=== PATIENT | female | born 1945 | race Caucasian/White ===

== ENCOUNTER → 2016-07-10 | Outpatient (CLI) | payer MEDICARE, OTHER | END | disposition home or self-care (01) | LOC: GMAL 11:54 | PROVIDERS: ATTEND Family Medicine | DX: D51.3 Other dietary vitamin B12 deficiency anemia (principal); R53.83 Other fatigue; E55.9 Vitamin D deficiency, unspecified; N39.498 Other specified urinary incontinence ==

== ENCOUNTER → 2017-10-01 | Outpatient (CLI) | payer OTHER | LOC: GMAL 12:08 | PROVIDERS: ATTEND Family Medicine | DX: D51.3 Other dietary vitamin B12 deficiency anemia (principal); R53.83 Other fatigue; E55.9 Vitamin D deficiency, unspecified ==

== ENCOUNTER → 2017-10-08 | Outpatient (CLI) | payer OTHER | LOC: GMAL 18:21 | PROVIDERS: ATTEND Family Medicine | DX: D50.8 Other iron deficiency anemias (principal) ==

== ENCOUNTER → 2018-09-16 | Outpatient (CLI) | payer OTHER ==
--- NOTE | 2018-09-16 13:17 | RAD ---
EXAM DESCRIPTION: Pelvis CLINICAL HISTORY: 73 years Female, M25.551, M25.552 COMPARISON: None. FINDINGS: Transitional lower lumbar vertebrae with pseudoarticulation of the right transverse process with the upper sacrum. Sacrum appears intact. Normal SI joints. Advanced degenerative changes at the pubic symphysis. No fracture or dislocation of the proximal femurs. Bones of the pelvic ring appear intact. Minimal narrowing of the hip joints. IMPRESSION: Negative for fracture. Electronically signed by: Kishore Teixeira MD 09/16/2018 1:14 PM CDT
== END ==
LOC: RAD 07:59
PROVIDERS: ATTEND Orthopaedic Surgery
DX: M25.551 Pain in right hip (principal); M25.552 Pain in left hip

== ENCOUNTER → 2018-09-17 | Outpatient (CLI) | payer OTHER | LOC: GMAL 10:27 | PROVIDERS: ATTEND Family Medicine | DX: D50.8 Other iron deficiency anemias (principal) ==

== ENCOUNTER → 2018-10-29 | Outpatient (CLI) | payer OTHER | LOC: RAD 10:32 | PROVIDERS: ATTEND Family Medicine | DX: M25.551 Pain in right hip (principal); M25.552 Pain in left hip; D50.8 Other iron deficiency anemias ==

== ENCOUNTER → 2018-11-06 | Outpatient (CLI) | payer OTHER ==
--- NOTE | 2018-11-06 14:58 | MRI ---
EXAM DESCRIPTION: Lumbar Spine w/o Contrast : Magnetic Resonance Imaging. CLINICAL HISTORY: RADICULOPATHY COMPARISON: LUMBAR TECHNIQUE: Multiplanar, multiple standard sequences, non contrast MRI, lumbar spine. FINDINGS: L5-S1: Disc space visualized on axial T2 series #501, image 3. The L5 vertebra is transitional partially sacralized. In particular, the right transverse process articulates with the right upper sacral ala and the right iliac bone partial articulation of the left transverse process with the left iliac bone. The foramina and sacral canal are also lumbarized in caliber. Disc desiccation with no disc bulge. Mild bilateral facet arthrosis. L4-L5: Disc desiccation and grade 1 anterolisthesis 3 mm. Minimal deformity of the left L4 pars interarticularis. No disc bulge. Marked bilateral facet hypertrophic arthrosis and thickening of the posterior flavum ligaments encroaching on the posterior thecal sac with AP canal diameter 5 mm. Bilateral mild foraminal narrowing. L3-L4: Disc desiccation posterior midline bulge with hyperintense T2 signal annular fissure in the midline abutting the thecal sac. Hypertrophic facet arthrosis and bilateral ligament thickening impressing on the thecal sac with AP canal diameter 8 mm. Mild right foraminal narrowing and moderate left foraminal narrowing. L2-L3: Disc desiccation with disc space maintained. Minimal anterior bulging and ridging. No posterior bulge. Bilateral flavum ligament hypertrophy and thickened ligaments with AP canal diameter 11 mm. Mild narrowing of the left foramen and moderate narrowing of the right foramen. L1-L2: Disc desiccation with minimal disc space loss. Anterior bulging and endplate ridging. Tiny posterior bulge. Mild hypertrophic facet arthrosis and ligament thickening with mild canal narrowing. Bilateral foramina are patent. T12-L1: Disc desiccation and moderate disc space loss. Endplate irregularities with Schmorl's nodes inferior T12. Anterior bulging and endplate ridging. Trace retrolisthesis 2 mm. Tiny posterior disc bulge. Conus terminates at this level.. Canal is patent. Mild bilateral foraminal narrowing. Normal signal in the distal conus and cord. No significant scoliosis. Paravertebral soft tissues show minimal paraspinal muscle atrophy. No mass.. Normal marrow signal in the remaining vertebral bodies and the posterior elements. Vertebral bodies are not compressed at any level. IMPRESSION: 1. L5 vertebra is transitional and partially sacralized. Sacralization of the bilateral L5-S1 foramina and the spinal canal. Partial articulation of the transverse processes with the upper sacral ala and bilateral iliac bone, more right than left. Transitional vertebra and similar spinal anomalies can be associated with abnormal spinal biomechanics and be a source of low back pain. There are also multiple levels of posterior facet hypertrophic arthrosis and thickening of the flavum ligaments. 2. L4-L5 multifactorial severe central canal stenosis. Bilateral mild foraminal narrowing. Grade 1 anterolisthesis with no significant disc bulge. Possible spondylolysis left L4 pars interarticularis. 3. L3-L4 disc desiccation and posterior bulge with annular fissure. Small posterior midline bulge of the disc. Mild to moderate central canal stenosis with hypertrophy of the posterior elements. 4. Moderate spondylosis at T12-L1 level. Trace retrolisthesis. No foraminal or canal stenosis. Electronically signed by: Andrew Blake MD 11/06/2018 2:55 PM CDT
== END ==
LOC: MRI 07:47
PROVIDERS: ATTEND Psychiatry & Neurology Neurology
DX: M51.16 Intervertebral disc disorders with radiculopathy, lumbar region (principal); M47.25 Other spondylosis with radiculopathy, thoracolumbar region; M48.062 Spinal stenosis, lumbar region with neurogenic claudication

== ENCOUNTER 2019-07-19 13:05 | Emergency (ER) | payer OTHER ==
[2019-07-19] MEDS ORDERED: SODIUM CHLORIDE 0.9% (FLUSH) 10 ML SYG IV PRN (13:23)
[2019-07-19] MEDS ORDERED: NITROGLYCERIN 0.4 MG 25 EA TAB SL ONE (13:23)
--- NOTE | 2019-07-19 13:24 | ED.PDOC ---
History of Present Illness - General Chief Complaint: Cardiovascular Problem Stated Complaint: syncopal episode Time Seen by Provider: 07/19/19 13:23 Source: patient - History of Present Illness Initial Comments: 74 yo female who is sent from clinic for cc of near syncope. Reports took her BP meds at 10:30 am. At clinic at 11 am to be seen for not feeling well for past few days and for ongoing FITZGERALD. Suddenly while sitting in waiting room she felt very dizzy/lightheaded and turned pale and clammy. Reported nausea but no emesis. Also reported new onset of intermittent fluttering sensation in her c hest which would last for 1-2 minutes and occur sporadically. Her BP was so low it was not registering there. Pt sent to ED for further eval. After some rest she reports now feeling much better. BP 90s/60s on arrival. Reports off and on posterior FITZGERALD for 1-2 weeks now. Also reports frequent chronic dry cough. Denies any chest pain, dyspnea, abd pain, leg swelling. BP meds: Benzapril 20 mg daily, Coreg 6.25 mg BID, HCTZ 25 mg daily, amlodipine 10 mg daily. Allergies/Adverse Reactions: Allergies Cephalexin [From Keflex] Allergy (Severe, Verified 07/19/19 13:23) Hives Home Medications: Ambulatory Orders DiphenhydrAMINE HCL [Benadryl] 50 mg PO 11/21/13 Nitrofurantoin Monohydrate Mac [Macrobid] 100 mg PO BID #14 capsule 07/19/19 Review of Systems - Review of Systems Review of Systems: 07/19/19 14:11 as per HPI All other Systems: Reviewed and Negative Past Medical History (General) - Patient Medical History Hx Seizures: No Hx Stroke: No Hx Dementia: No Hx Asthma: No Hx of COPD: No Hx Cardiac Disorders: No Hx Congestive Heart Failure: No Hx Pacemaker: No Hx Hypertension: Yes Hx Thyroid Disease: No Hx Diabetes: Yes Hx Gastroesophageal Reflux: No Hx Renal Disease: No Hx of HIV: No Hx MRSA: No Surgical History: appendectomy, cholecystectomy, other - Vaccination History Hx Tetanus, Diphtheria Vaccination: Yes - within last 5 years Hx Influenza Vaccination: Yes - unknown Hx Pneumococcal Vaccination: Yes - Social History Hx Tobacco Use: No Hx Chewing Tobacco Use: No Hx Alcohol Use: No Hx Substance Use: No Hx Substance Use Treatment: No Hx Depression: No Hx Physical Abuse: No Hx Emotional Abuse: No Hx Suspected Abuse: No - Female History Patient : No Family Medical History - Family History Mother Living Status: Hx Family Hypertension: Yes Hx Family Stroke: Yes Hx Family Diabetes: Yes Physical Exam - Physical Exam General Appearance: Alert, No apparent distress Eye Exam: bilateral normal Ears, Nose, Throat: hearing grossly normal, normal ENT inspection, normal pharynx Neck: non-tender, full range of motion, supple, normal inspection Respiratory: chest non-tender, lungs clear, normal breath sounds, no respiratory distress, no accessory muscle use Cardiovascular/Chest: normal peripheral pulses, regular rate, rhythm, no edema, no gallop, no JVD, no murmur Peripheral Pulses: radial,right: 2+, radial,left: 2+ Gastrointestinal/Abdominal: non tender, soft, no organomegaly Back Exam: normal inspection, no CVA tenderness, no vertebral tenderness Extremity: normal range of motion, non-tender, normal inspection, no pedal edema, no calf tenderness 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 Consider also ACS, CHF, arrhythmia, electolyte derangement, infection, dehydration, other -stat cardiac work-up, labs -1 L NS bolus 07/19/19 16:16 -Pt remains stable >2 hours now following rest & IV fluids in ED. UA reveals possible UTI. Cardiac work-up is unremarkable. CXR clear per my read. -Suspect acute sx's likely medication-induced hypotension. Spoke with Dr. Wahl who advised having her stop the Benzapril and have her f/u with him next week in clinic for repeat evaluation. -as her UA is equivocal for possible UTI, will place on Macrobid BID x7 days -dc home in good condition, return warnings discussed Peter Napier MD Billing #[id number] 07/19/19 13:23 IV Care:Saline Lock per Protoc QSHIFT Telemetry .ONCE Sodium Chloride 0.9% (Flush) [Saline Flush Syringe] 10 ml IV PRN PRN EKG Stat Pulse Ox Stat 03/09/20 14:06 INFLUENZA A & B BY PCR Stat 07/19/19 15:15 EKG STAT Laboratory Results - last 24 hr 07/19/19 07/19/19 07/19/19 13:30 13:30 15:00 WBC 10.7 RBC 4.70 Hgb 14.3 Hct 42.8 MCV 91.0 MCH 30.4 MCHC 33.4 RDW 14.1 Plt Count 211 MPV 9.4 Absolute Neuts (auto) 9.20 H Absolute Lymphs (auto) 0.70 L Absolute Monos (auto) 0.60 Absolute Eos (auto) 0.10 Absolute Basos (auto) 0.10 Neutrophils % 86.2 H Lymphocytes % 6.5 L Monocytes % 5.9 Eosinophils % 0.8 L Basophils % 0.6 PT 9.8 INR < 1.00 PTT (SP) 21.2 L D-Dimer, Quantitative < 131 L Sodium 136 Potassium 4.2 Chloride 102 Carbon Dioxide 21 Anion Gap 17.2 BUN 29 H Creatinine 1.28 BUN/Creatinine Ratio 22.7 H Random Glucose 157 H Serum Osmolality 281.0 Calcium 9.3 Magnesium 1.9 Total Bilirubin 0.6 Direct Bilirubin 0.1 Indirect Bilirubin 0.5 AST 23 ALT 21 Alkaline Phosphatase 61 Creatine Kinase 36 CK-MB (CK-2) 1.1 CK-MB (CK-2) % Not Reportable Troponin I < 0.02 B-Natriuretic Peptide 11.9 Serum Total Protein 6.8 Albumin 4.1 Urine Color Yellow Urine Appearance Cloudy Urine pH 5.0 Ur Specific [place] 1.020 Urine Protein 100 H Urine Glucose (UA) Negative Urine Ketones Trace Urine Blood Trace-lysed H Urine Nitrite Negative Urine Bilirubin Small H Urine Urobilinogen 0.2 Ur Leukocyte Esterase Trace H Urine RBC 3-5 H Urine WBC 5-10 H Ur Epithelial Cells 1-3 Amorphous Sediment 3+ Urine Bacteria 1+ Hyaline Casts 0-1 Urine Mucus Large 07/19/19 15:21 WBC RBC Hgb Hct MCV MCH MCHC RDW Plt Count MPV Absolute Neuts (auto) Absolute Lymphs (auto) Absolute Monos (auto) Absolute Eos (auto) Absolute Basos (auto) Neutrophils % Lymphocytes % Monocytes % Eosinophils % Basophils % PT INR PTT (SP) D-Dimer, Quantitative Sodium Potassium Chloride Carbon Dioxide Anion Gap BUN Creatinine BUN/Creatinine Ratio Random Glucose Serum Osmolality Calcium Magnesium Total Bilirubin Direct Bilirubin Indirect Bilirubin AST ALT Alkaline Phosphatase Creatine Kinase CK-MB (CK-2) CK-MB (CK-2) % Troponin I < 0.02 B-Natriuretic Peptide Serum Total Protein Albumin Urine Color Urine Appearance Urine pH Ur Specific [place] Urine Protein Urine Glucose (UA) Urine Ketones Urine Blood Urine Nitrite Urine Bilirubin Urine Urobilinogen Ur Leukocyte Esterase Urine RBC Urine WBC Ur Epithelial Cells Amorphous Sediment Urine Bacteria Hyaline Casts Urine Mucus 07/19/19 16:47 - EKG/XRAY/CT EKG: Sinus - NSR, HR 80, no ST elev's or q waves, axis & intervals normal, no p rior EKG for comparison - Additional EKG/XRAY/Consults EKG #2: Unchanged from - initial Departure - Departure Clinical Impression: Low blood pressure, UTI (urinary tract infection) Time of Disposition: 16:14 Disposition: Discharge to Home or Self Care Condition: Good Departure Forms: ED Discharge - Pt. Copy, Patient Portal Self Enrollment Instructions: DI for Chest Pain Diet: resume usual diet Referrals: Yariel Wahl III, MD [Primary Care Provider] - 1-2 Weeks Prescriptions: Nitrofurantoin Monohydrate Mac [Macrobid] 100 mg PO BID #14 capsule Home Medications: Ambulatory Orders DiphenhydrAMINE HCL [Benadryl] 50 mg PO 11/21/13 Nitrofurantoin Monohydrate Mac [Macrobid] 100 mg PO BID #14 capsule 07/19/19 Additional Instructions: Follow up with Dr. Wahl in 1 week in clinic. Quit taking the Benzapril for now until further direction from your PCP. Return if any concerning symptoms develop such as chest pain, shortness of breath, fevers, etc...
--- NOTE | 2019-07-19 14:05 | RAD ---
EXAM DESCRIPTION: Chest,1 View CLINICAL HISTORY: chest pain COMPARISON: January 06, 2008 IMPRESSION: Single AP portable upright view of the chest shows cardiac silhouette and pulmonary vasculature to be within normal limits. Lungs are normally aerated and clear. No obvious pleural effusion or pneumothorax is seen. Moderate retrocardiac hiatal hernia is seen with air-fluid level now identified. Postsurgical changes to the right shoulder are seen. Electronically signed by: Gregorio Mello MD 07/19/2019 2:04 PM CDT
[2019-07-19] MEDS ORDERED: SODIUM CHLORIDE 0.9% 1000ML 1,000 ML IVS ONE (14:07)
[2019-07-19 15:42] VITALS: TEMP 97.9
[2019-07-19 16:07] VITALS: BP 118/73; O2SAT 94
[2019-07-19] MEDS ORDERED: NITROFURANTOIN MONOHYDRATE MAC 100 MG CAP PO ONE (16:10)
== END 2019-07-19 16:50 | disposition home or self-care (01) ==
LOC: ER 13:05
DX: I95.9 Hypotension, unspecified (principal); N39.0 Urinary tract infection, site not specified; R55 Syncope and collapse; R05 Cough; E11.9 Type 2 diabetes mellitus without complications; I10 Essential (primary) hypertension; Z88.1 Allergy status to other antibiotic agents; Z79.899 Other long term (current) drug therapy
CPT/HCPCS: 36415; 71045; 80048; 80076; 81001; 82550; 82553; 83880; 84484; 85025; 85379; 85610; 85730; 87086; 93005; 94760; J7030

== ENCOUNTER → 2019-09-20 | Outpatient (CLI) | payer OTHER ==
--- NOTE | 2019-09-21 09:01 | MRI ---
EXAM DESCRIPTION: Brain w/wo Contrast: Magnetic Resonance Imaging. CLINICAL HISTORY: 74 years Female HEADACHE COMPARISON: MRI scan of the brain without and with gadolinium IV contrast September 2010. TECHNIQUE: Multiplanar, high-field MRI, multiple conventional sequences, without and with gadolinium IV contrast. No adverse reactions. Multiple axial diffusion sequences. FINDINGS: Enhancing lesion in the posterior falx less than 1 mm long axis and extending to the left with mass effect on the left parasagittal occipital lobe. Axial reformats postcontrast image 26 and axial T1 postcontrast image 18. Sagittal 3-D sequence with gadolinium, image 74. Central lack of enhancement on T2 axial image 18 and gradient axial image 18, is signal void indicating calcification. This lesion is most likely a meningioma and demonstrates minimal enlargement compared to the prior study. No cerebral edema in the occipital lobe or abnormal enhancement. No hemorrhage. Minimal periventricular white matter and subcortical white matter hyperintense FLAIR and T2-weighted signal. Stable since the prior study. No abnormal enhancement, no cerebral edema, no mass effect and no hemorrhage.. Normal signal in the bilateral basal ganglia. Normal contrast enhancement. Normal signal in the brainstem and cerebellar hemispheres. Normal contrast enhancement. Concordance of the diffusion and non-diffusion sequences with no evidence of acute or subacute infarction. Cortical sulci, ventricles, and other CSF spaces, and the subdural spaces are normally configured for patients age. No effacement or displacement. No midline shift. No extra-axial hemorrhage. Normal contrast enhancement. Normal flow signal void in the major vessels of the [place] [address], and the venous sinuses. IACs are symmetric bilaterally. Possible left posterior communicating artery. Right vertebral artery dominance. Stable since the prior study. Normal signal in the bilateral mastoid air cells. No mass effect in the bilateral Cerebellopontine angles. Normal contrast enhancement. Pituitary gland occupies all of the sella. Normal contrast enhancement. Base of the cerebellar tonsils is at the level of the foramen magnum. Minimal mucosal thickening in the paranasal sinuses. The bony calvarium is intact. IMPRESSION: 1. Extra-axial mass, with calcification and enhancement, posterior falx, mass effect on the parasagittal left occipital lobe, without definite invasion. No cerebral edema, hemorrhage, or enhancement in the lobe. Slight enlargement since the prior study in 2010. Most likely a meningioma. Not likely to be related to clinical history. 2. Periventricular white matter and subcortical white matter signal changes most likely related to aging or possibly cerebral microvascular disease. No significant progression since the prior study. Electronically signed by: Andrew Blake MD 09/21/2019 8:59 AM CDT
== END ==
LOC: MRI 13:38
PROVIDERS: ATTEND Family Medicine
DX: G93.9 Disorder of brain, unspecified (principal); R90.82 White matter disease, unspecified; R51 Headache

== ENCOUNTER → 2019-10-08 | Outpatient (CLI) | payer OTHER | LOC: GMAL 12:19 | PROVIDERS: ATTEND Family Medicine | DX: D51.3 Other dietary vitamin B12 deficiency anemia (principal); D50.8 Other iron deficiency anemias; R53.83 Other fatigue; E55.9 Vitamin D deficiency, unspecified; I10 Essential (primary) hypertension ==

== ENCOUNTER → 2020-01-24 | Outpatient (CLI) | payer OTHER | LOC: GMAL 16:55 | PROVIDERS: ATTEND Family Medicine | DX: D51.3 Other dietary vitamin B12 deficiency anemia (principal) ==